=== PATIENT | female | born 1985 | race Asian ===

== ENCOUNTER 2020-08-27 10:23 | Emergency (ER) | payer OTHER ==
[2020-08-27 10:32] VITALS: BP 132/67; PULSE 96; TEMP 98; BMI 27.3
[2020-08-27] MEDS ORDERED: ACETAMINOPHEN 325 MG TABLET (FP) PO ONE (12:02)
[2020-08-27] MEDS ORDERED: KETOROLAC TROMETHAMINE 30 MG/1 ML VIAL IM ONE (12:02)
[2020-08-27] MEDS ORDERED: LIDOCAINE 5% TOPICAL PATCH TP ONE (12:02)
[2020-08-27] MEDS ORDERED: METHOCARBAMOL 500 MG TABLET PO ONE (12:05)
[2020-08-27] MEDS ORDERED: ACETAMINOPHEN 325 MG TABLET (FP) ONE (12:17)
[2020-08-27] MEDS ORDERED: METHOCARBAMOL 500 MG TABLET ONE (12:18)
[2020-08-27] MEDS ORDERED: KETOROLAC TROMETHAMINE 30 MG/1 ML VIAL ONE (12:18)
[2020-08-27] MEDS ORDERED: LIDOCAINE 5% TOPICAL PATCH ONE (12:18)
[2020-08-27 14:40] LABS: PH,URINE 6.5 (5.0-8.0); URINE APPEARANCE CLEAR; URINE BILIRUBIN NEGATIVE (NEGATIVE); URINE COLOR YELLOW; URINE GLUCOSE (UA) NEGATIVE (NEGATIVE); URINE KETONE NEGATIVE (NEGATIVE); URINE LEUK ESTERASE NEGATIVE (NEGATIVE); URINE NITRITE NEGATIVE (NEGATIVE); URINE PROTEIN NEGATIVE (NEGATIVE); URINE UROBILINOGEN 0.2 mg/dL (0.2-1.0)
[2020-08-27] MEDS ORDERED: LIDOCAINE PATCH REMOVAL MC SCH (22:00)
== END 2020-08-27 14:49 | disposition home or self-care (01) ==
LOC: JER 10:23
PROC: 3E0233Z Introduction of Anti-inflammatory into Muscle, Percutaneous Approach (ICD-10-PCS; principal; 2020-08-27)
DX: M54.41 Lumbago with sciatica, right side (principal)
CPT/HCPCS: 81003; 84703; 87086; 99284-25